=== PATIENT | female | born 1950 | race African-American/Black ===

== ENCOUNTER 2017-05-08 21:42 | Emergency (ER) | payer MEDICAID ==
[~2017-05-08] VITALS: Ht 160 cm; Wt 113.0 kg
[~2017-05-08 21:42] MED LIST: ACETAMINOPHEN PO; AMLO5TAB88 PO; ATOR20TA PO; BENA20TA3 PO; CARV25TA47 PO; FAMO20TA8 PO; FISH; GABA-531 PO; HEPA500013 SUBCUT; HYDR25TA PO; INSU100C11 SUBCUT; INSU100C3 SUBCUT; ISOS30TA6 PO; LOSA25TA3 PO; METO50TA5 PO; OMEP20TA15 PO; PRAS10TA6 PO; PROM6.25 PO; TRAM50TA PO; [UNRECOGNIZED DRUG - OTHER] PO
[2017-05-08] MEDS ORDERED: IBUPROFEN 600MG TABLET PO ONE (22:00)
[2017-05-09 00:08] VITALS: BP 138/71
== END 2017-05-09 01:30 ==
LOC: ER 21:52
DX: M19.012 Primary osteoarthritis, left shoulder (principal); M19.011 Primary osteoarthritis, right shoulder; H57.12 Ocular pain, left eye; Z88.0 Allergy status to penicillin; Z79.4 Long term (current) use of insulin; Z79.899 Other long term (current) drug therapy; Z86.73 Personal history of transient ischemic attack (TIA), and cerebral infarction without residual deficits; J44.9 Chronic obstructive pulmonary disease, unspecified; I50.9 Heart failure, unspecified; I11.0 Hypertensive heart disease with heart failure; E78.00 Pure hypercholesterolemia, unspecified; E11.9 Type 2 diabetes mellitus without complications; I25.10 Atherosclerotic heart disease of native coronary artery without angina pectoris; Z90.710 Acquired absence of both cervix and uterus; Z90.49 Acquired absence of other specified parts of digestive tract
CPT/HCPCS: 71010; 73030; 99284